=== PATIENT | male | born 1935 | race Caucasian/White ===

== ENCOUNTER 2017-01-27 18:15 | Emergency (ER) | payer MEDICARE, BC ==
[~2017-01-27 18:15] MED LIST: ALTACE; ALTACE10 MG PO; ASCRIPTIN 325325 MG; ASPIR 8181 MG PO; ASPIRIN EC325 MG PO; CENTRUM COMPLE1 EACH PO; COREG; COREG25 MG PO; DARVOCET; DILAUDID2 MG PO; DOXYCYCLINE HY100 MG PO; FLONASE16 G1; K-DUR10 MEQ PO; LASIX; LASIX20 MG PO; LASIX40 MG PO; LIPITOR; LIPITOR10 MG PO; POTASSIUM CHLORIDE; PROPOXY-N-APAP1 TAB; QVAR80MCG INH; SINGULAIR10 MG PO; ZYRTEC10 M2 PO
[2017-01-27] MEDS ORDERED: ELIQUIS5 M1 PO (18:53)
[2017-01-27 18:56] LABS: BASO % 0.1 % (0-2); EOS % 1.7 % (0-7); EOSINOPHIL ABSOLUTE COUNT 0.1 tho/cmm (0.0-0.7); HGB-HEMOGLOBIN 16.2 gm/dl (13.5-17.0); IMMATURE GRANULOCYTES ABSOLUTE 0.02 tho/cmm (0-0.03); IMMATURE GRANULOCYTES PERCENT 0.3 % (0-0.3); LYMPH % 15.7 % (20-45); LYMPH ABSOLUTE COUNT 1.1 tho/cmm (0.8-4.5); MCH (MEAN CORPUSCULAR HGB) 31.2 pg (28.0-32.0); MCHC MEAN CORPUSCULAR HGB CONC 34.5 % (32.0-36.0); MCV (MEAN CELL VOLUME) 90.6 fl (82.0-96.0); MEAN PLATELET VOLUME 10.3 cmc (9.4-12.4); MONO % 10.3 % (0-12); MONOCYTE ABSOLUTE COUNT 0.7 tho/cmm (0.0-1.2); NEUTROPHIL ABSOLUTE COUNT 4.9 tho/cmm (1.6-8.0); NEUTROPHIL-AUTOMATED 4.9 tho/cmm (1.6-8.0); NEUTROPHILS % 71.9 % (40-80); PLATELET COUNT 137 tho/cmm (150-450); RED BLOOD COUNT 5.19 mil/cmm (4.40-5.70); RED CELL DISTRIBUTION WIDTH 13.5 % (12.4-16.4); WHITE BLOOD COUNT 6.9 tho/cmm (4.0-10.0)
[2017-01-27 19:12] LABS: ALB/GLOB RATIO 1.2 (0.8-2.0); ALBUMIN 3.8 g/dl (3.5-5.0); ALKALINE PHOSPHATASE 109 U/L (33-138); ALT/SGPT 33 U/L (12-78); BILIRUBIN,TOTAL 1.8 mg/dl (0.0-1.5); BLOOD UREA NITROGEN 15 mg/dl (6-24); CALCIUM 8.8 mg/dl (8.5-10.5); CARBON DIOXIDE-VENOUS 26 mmol/L (22-32); CHLORIDE 107 mmol/l (96-110); CREATININE 1.05 mg/dl (0.60-1.30); GLUCOSE 103 mg/dL (70-110); SODIUM 140 mmol/L (135-145); eGFR VALUE FOR BLACK 78 mL/Min
[2017-01-27 19:23] LABS: ANION GAP 11 mmol/L (0-20); AST/SGOT 25 U/L (10-40); POTASSIUM 4.1 mmol/L (3.7-5.1)
[2017-01-27 19:26] LABS: URINE APPEARANCE CLEAR; URINE BILIRUBIN NEGATIVE (NEG); URINE BLOOD NEGATIVE (NEG); URINE COLOR YELLOW; URINE GLUCOSE (UA) NEGATIVE (NEG); URINE KETONE NEGATIVE (NEG); URINE LEUKOCYTE ESTERASE NEGATIVE (NEG); URINE NITRITE NEGATIVE (NEG); URINE PROTEIN NEGATIVE (NEG)
[2017-01-27] MEDS ORDERED: ADVIL200 M3 PO (19:26)
[2017-01-27] MEDS ORDERED: ALTACE10 M4 PO (19:26)
[2017-01-27] MEDS ORDERED: COREG25 M1 PO (19:27)
[2017-01-27] MEDS ORDERED: CENTRUM SILVER1 EAC3 PO (19:27)
[2017-01-27] MEDS ORDERED: ASPIR 8181 M1 PO (19:27)
[2017-01-27] MEDS ORDERED: NEURONTIN300 M1 PO (19:28)
[2017-01-27] MEDS ORDERED: FLONASE ALLERG9.9 ML (19:28)
[2017-01-27] MEDS ORDERED: LIPITOR10 M1 PO (19:28)
[2017-01-27] MEDS ORDERED: LASIX20 M1 PO (19:28)
[2017-01-27] MEDS ORDERED: OSTEO BI FLEX PO (19:29)
[2017-01-27] MEDS ORDERED: PROAIR RESPICL90 MCG INH (19:29)
[2017-01-27] MEDS ORDERED: ULTRAM50 M1 PO (19:29)
[2017-01-27] MEDS ORDERED: SINGULAIR10 M1 PO (19:29)
[2017-01-27] MEDS ORDERED: POTASSIUM CHLO10 ME2 PO (19:29)
[2017-01-27] MEDS ORDERED: VITAMIN B-12250 MC2 PO (19:30)
[2017-01-27] MEDS ORDERED: ZYRTEC10 M7 PO (19:30)
[2017-01-27] MEDS ORDERED: LEVAQUIN750 M1 PO (21:40)
== END 2017-01-27 21:55 ==
LOC: EDMED 18:15
PROVIDERS: Emergency Medicine
DX: J18.9 Pneumonia, unspecified organism (principal); I25.10 Atherosclerotic heart disease of native coronary artery without angina pectoris; I48.91 Unspecified atrial fibrillation; I10 Essential (primary) hypertension; E78.5 Hyperlipidemia, unspecified; Z95.1 Presence of aortocoronary bypass graft; Z90.49 Acquired absence of other specified parts of digestive tract; Z79.82 Long term (current) use of aspirin; Z79.899 Other long term (current) drug therapy
CPT/HCPCS: J7030